=== PATIENT | female | born 1965 | race Caucasian/White ===

== ENCOUNTER 2021-09-10 05:58 | Day surgery (SDC) | payer BC ==
[2021-09-05 14:51] VITALS: BMI 31.3
[2021-09-10] MEDS ORDERED: Lidocaine 1% MPF 2 ML VIAL ONE (07:26)
[2021-09-10] MEDS ORDERED: Lidocaine 2% MPF 10 ML AMP (For Epidural Use) ONE (07:48)
[2021-09-10] MEDS ORDERED: PROPOFOL 40 ML ONE (07:48)
== END 2021-09-10 09:10 | disposition home or self-care (01) ==
LOC: CSHSDC 05:58
PROVIDERS: ATTEND Surgery
PROC: 0DB68ZZ Excision of Stomach, Via Natural or Artificial Opening Endoscopic (ICD-10-PCS; principal; 2021-09-10)
DX: K29.50 Unspecified chronic gastritis without bleeding (principal); E66.01 Morbid (severe) obesity due to excess calories; K44.9 Diaphragmatic hernia without obstruction or gangrene; Z79.899 Other long term (current) drug therapy; E78.00 Pure hypercholesterolemia, unspecified; F32.A Depression, unspecified; F41.9 Anxiety disorder, unspecified
CPT/HCPCS: 88305; 88312; J2704